=== PATIENT | female | born 1940 | race Caucasian/White ===

== ENCOUNTER 2017-05-30 09:27 | Emergency (ER) | payer OTHER, BC ==
[2017-05-30 09:37] VITALS: BP 152/68; PULSE 70; TEMP 98.7; BMI 22.8
--- NOTE | 2017-05-30 10:30 | PDOC ---
History of Present Illness - General Chief Complaint: Injury Stated Complaint: INJURY, RT SIDE PAIN Time Seen by Provider: 05/30/17 10:19 History Source: Patient Exam Limitations: No Limitations - History of Present Illness Initial Comments: 05/30/17 10:28 c/o pain to the left ribs after she slipped last night and hit her ribs on the banister. pt woke up today with pain took 325mg ASA prior to arrival. Occurred: reports: yesterday Severity: reports: mild Past History - Past Medical History Allergies/Adverse Reactions: Allergies Allergy/AdvReac Type Severity Reaction Status Date / Time No Known Allergies Allergy Verified 05/30/17 09:32 Home Medications: Ambulatory Orders Amlodipine Besylate [Norvasc -] 10 mg PO DAILY 05/30/17 COPD: No - Surgical History Cholecystectomy: Yes - Suicide/Smoking/Psychosocial Hx Smoking History: Never smoked Have you smoked in the past 12 months: No Information on smoking cessation initiated: No Hx Alcohol Use: No Drug/Substance Use Hx: No Substance Use Type: None Trauma Specific PMHX - Complaint Specific PMHX Arthritis: No Back Injury: Yes Neck Injury: No Hx Sacro Iliac Joint Dysfunction: No Review of Systems - Review of Systems Able to Perform ROS?: Yes Is the patient limited Icelandic proficient: No Constitutional: No: Symptoms Reported HEENTM: No: Symptoms Reported Respiratory: No: Symptoms reported Cardiac (ROS): No: Symptoms Reported ABD/GI: No: Symptoms Reported : No: Symptoms Reported Musculoskeletal: Yes: Symptoms Reported *Physical Exam - Vital Signs Last Vital Signs Temp Pulse Resp BP Pulse Ox 98.7 F 70 18 152/68 100 05/30/17 09:32 05/30/17 09:32 05/30/17 09:32 05/30/17 09:32 05/30/17 09:32 - Physical Exam General Appearance: Yes: Nourished, Appropriately Dressed HEENT: positive: EOMI, PACO Neck: positive: Supple Respiratory/Chest: positive: Lungs Clear, Normal Breath Sounds, Other (tedner to left rib under left breast, no bruising no crepitus , skin intact). negative : Decreased Breath Sounds Cardiovascular: positive: Regular Rhythm, Regular Rate Gastrointestinal/Abdominal: positive: Normal Bowel Sounds, Soft. negative: Tender Musculoskeletal: positive: Normal Inspection Extremity: positive: Normal Capillary Refill, Normal Inspection, Normal Range of Motion Integumentary: positive: Normal Color, Dry, Warm Neurologic: positive: furnace puncher II-XII NML intact, Fully Oriented, Alert, Normal Mood/ Affect, Normal Response, Motor Strength 08/27 ED Treatment Course - RADIOLOGY Radiology Studies Ordered: Category Date Time Status RIBS-LEFT SIDE [RAD] Stat Radiology 05/30/17 10:27 Ordered Medical Decision Making - Medical Decision Making 05/30/17 10:29 cc: left rib injury yesterday pain wth touch and movement will get rib xray to r/o fracture *DC/Admit/Observation/Transfer Diagnosis at time of Disposition: Rib fracture Qualifiers: Encounter type: initial encounter Rib fracture type: single rib Fracture type: closed Laterality: left Qualified Code(s): S22.32XA - Fracture of one rib, left side, initial encounter for closed fracture - Discharge Dispostion Disposition: HOME Condition at time of disposition: Good - Referrals Referrals: Declan Haque MD [Primary Care Provider] - - Patient Instructions Additional Instructions: follow up with your doctor this week for follow up apply ice to the area of pain every 2hrs for 20 minutes to help with pain take motrin 400mg every 6hrs for pain as needed (advil, motrin or ibuprofen) use the incentive spirometer as directed return to ER for any worsening pain - Post Discharge Activity
--- NOTE | 2017-06-01 12:40 | EKG ---
Test Reason : Blood Pressure : / mmHG Vent. Rate : 065 BPM Atrial Rate : 065 BPM P-R Int : 166 ms QRS Dur : 070 ms QT Int : 406 ms P-R-T Axes : 038 004 048 degrees QTc Int : 422 ms SINUS RHYTHM WITH PREMATURE ATRIAL COMPLEXES POSSIBLE ANTERIOR INFARCT , AGE UNDETERMINED ABNORMAL ECG WHEN COMPARED WITH ECG OF 26-JUL-1997 16:30, PREMATURE ATRIAL COMPLEXES ARE NOW PRESENT Confirmed by AQUILES CASTAÑEDA, VIJAYA ([id number]) on 06/01/2017 12:40:09 PM Referred By: Confirmed By:VIJAYA KWAN MD
== END 2017-05-30 12:27 | disposition home or self-care (01) ==
LOC: JERFT 09:27
DX: S22.32XA Fracture of one rib, left side, initial encounter for closed fracture (principal); W01.198A Fall on same level from slipping, tripping and stumbling with subsequent striking against other object, initial encounter; Y93.89 Activity, other specified; Y92.89 Other specified places as the place of occurrence of the external cause; Y99.8 Other external cause status
CPT/HCPCS: 71101-TC-FY; 93005; 93010; 99281-25